=== PATIENT | male | born 1985 | race Caucasian/White ===

== ENCOUNTER 2025-07-19 12:05 | Emergency (ER) | payer SELFPAY ==
[~2025-07-19] VITALS: Ht 165.1 cm; Wt 68.0 kg
[2025-07-19 12:07] VITALS: O2SAT 98
[2025-07-19] MEDS: SODIUM CHLORIDE 0.9% 1,000 ML IV ONE (13:11)
[2025-07-19] MEDS: ASPIRIN 325MG EC TABLET PO ONE (13:11)
[2025-07-19 13:34] LABS: BASOPHILS % 2.6 % (0.0-2.0); EOSINOPHILS % 4.6 % (0.0-5.0); HEMATOCRIT. 45.6 % (42.0-52.0); HEMOGLOBIN. 15.9 g/dL (14.0-18.0); LYMPHOCYTES % 23.0 % (20.0-50.0); MEAN PLATELET VOLUME 7.7 fl (7.4-10.4); MONOCYTES % 10.3 % (2.0-8.0); NEUTROPHILS % 59.5 % (40.0-76.0); PLATELET 344 x1000/uL (130-400); RED BLOOD CELL COUNT 4.67 mill/uL (4.7-6.1); RED CELL DISTRIBUTION WIDTH 12.8 % (11.6-14.6)
[2025-07-19 13:57] LABS: CREATININE 1.0 mg/dL (0.6-1.3)
[2025-07-19 13:58] LABS: TROPONIN I HIGH SENSITIVITY < 4 ng/L (3.0-53); UREA NITROGEN BLOOD 6 mg/dL (9-23)
[2025-07-19 14:00] LABS: ASPARTATE AMINOTRANSFERASE 30 IU/L (<34); BILIRUBIN DIRECT 0.5 mg/dL (<=3.0); BILIRUBIN TOTAL 1.7 mg/dL (0.1-1.0); PROTEIN TOTAL 7.7 g/dL (6.0-8.3)
[2025-07-19] MEDS: POTASSIUM CHLORIDE 20MEQ TABLET SR PO ONE (14:15)
[2025-07-19 14:29] VITALS: BP 118/80; PULSE 90; RESP 18; TEMP 36.7; O2SAT 98
== END 2025-07-19 14:30 | disposition home or self-care (01) ==
LOC: ER 12:05 → CANBEDREQ 14:27 → ER 14:30
DX: R07.89 Other chest pain (principal); F15.90 Other stimulant use, unspecified, uncomplicated; F10.90 Alcohol use, unspecified, uncomplicated; Z79.899 Other long term (current) drug therapy; Y90.9 Presence of alcohol in blood, level not specified
CPT/HCPCS: 80076; 80048; 85025; 84484; 36415; 71045; 93005; 99285; J7030; Z7610